=== PATIENT | female | born 1990 | race Caucasian/White ===

== ENCOUNTER → 2016-08-09 | Day surgery (SDC) | payer BC ==
[~2016-08-09] VITALS: Ht 160 cm; Wt 79.4 kg
[~2016-08-09] MED LIST: NAPROXEN DELAY500 MG PO; NORCO 325 MG-51 TAB PO
[2016-08-09 08:34] VITALS: BP 144/85
[2016-08-09 09:03] VITALS: BP 144/85
[2016-08-09 09:09] VITALS: BP 134/96
[2016-08-09 09:12] VITALS: BP 128/71
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
== END ==
LOC: PM 08:19
PROC: 3E0U33Z Introduction of Anti-inflammatory into Joints, Percutaneous Approach (ICD-10-PCS; principal; 2016-08-09)
PROC: 3E0U3BZ Introduction of Anesthetic Agent into Joints, Percutaneous Approach (ICD-10-PCS; 2016-08-09)
DX: M46.1 Sacroiliitis, not elsewhere classified (principal)
CPT/HCPCS: G0260; J1030

== ENCOUNTER → 2016-09-10 | Day surgery (SDC) | payer BC ==
[~2016-09-10] VITALS: Ht 160 cm; Wt 81.6 kg
[2016-09-10 13:18] VITALS: BP 150/86
[2016-09-10 13:39] VITALS: BP 150/86
[2016-09-10 13:40] VITALS: BP 133/83
--- NOTE | 2016-09-10 13:46 | Procedure Note ---
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 Post-procedure diagnosis: Same. Indications for procedure: This patient is a pleasant 25-year-old white female who we have been treating for low back pain and LEFT hip pain with some LEFT leg radicular symptoms. She did have a LEFT SI joint injection which gave her temporary relief for 3-4 days. Her pain still is radiating down her LEFT leg. I believe she would benefit from a lumbar epidural steroid injection. We will plan on a lumbar epidural steroid injection under fluoroscopy. She does have degenerative changes with disc bulge at L4-L5 and facet disease at L5-S1. Patient presents today for L4-5 lumbar epidural steroid injection. Procedure detail: Procedure: Lumbar epidural steroid injection under fluoroscopy Informed consent was obtained and the risks and benefits of the procedure were explained to the patient. The patient was taken to the procedure room and noninvasive monitors placed, including noninvasive blood pressure cuff and pulse oximeter. The back was viewed using C-arm Fluoroscopy and prepped using Betadine as a cleansing solution and the L4-L5 interspace was palpated. Skin and subcutaneous tissues were anesthetized using lidocaine 1.5% and a 25-gauge needle. After this, an 18-gauge Touhy epidural needle was placed into the L4-L5 interspace and advanced using fluoroscopic guidance and loss of resistance to air until the epidural space was encountered. After confirmation of needle placement in the epidural space, with dye, a solution containing lidocaine 1.5%, 4 mL and Depo-Medrol 80 mg were incrementally injected into the lumbar epidural space. The patient tolerated the procedure well with no complications. The patient was observed in the Pain Clinic and then discharged home neurologically intact. Plan and disposition: Patient reevaluated 10 minutes post procedure. She is doing quite well. She'll return to see us in the pain clinic for further evaluation. at [id number]
[2016-09-10 13:55] VITALS: BP 126/72
== END ==
LOC: PM 12:58
PROC: 3E0R33Z Introduction of Anti-inflammatory into Spinal Canal, Percutaneous Approach (ICD-10-PCS; principal; 2016-09-10)
PROC: 3E0R3BZ Introduction of Anesthetic Agent into Spinal Canal, Percutaneous Approach (ICD-10-PCS; 2016-09-10)
DX: M51.16 Intervertebral disc disorders with radiculopathy, lumbar region (principal)
CPT/HCPCS: J1040; Q9966

== ENCOUNTER 2016-12-10 13:33 | Day surgery (SDC) | payer BC ==
[~2016-12-10] VITALS: Ht 160 cm; Wt 79.4 kg
[2016-12-10 14:14] VITALS: BP 147/83
[2016-12-10] MEDS ORDERED: PROZAC 20MG CAP20 MG PO (14:22)
[2016-12-10 14:28] VITALS: BP 147/83
[2016-12-10 14:33] VITALS: BP 142/82
--- NOTE | 2016-12-10 14:35 | Procedure Note ---
Procedure detail Date of procedure: 12/10/16 Anesthesiologist: Giovani mehta CRNA Complications: None Pre-procedure diagnosis: Degenerative disease of her spine multiple levels. Lumbar facet arthropathy. Lumbar spondylosis. Post-procedure diagnosis: Same. Indications for procedure: Very pleasant 26-year-old white female we've been treating her pain clinic for chronic low back pain. She status post 1 round of medial branch block L4-5, L5- S1. Patient reports 75 percent improvement terms for lumbar back pain after receiving the injections. She presents today for second round of medial branch block bilateral L4-5, L5-S1. Procedure detail: Informed consent was obtained and the risk and benefits of the procedure was explained to the patient. Patient was taken to the procedure room where noninvasive monitors were placed, including noninvasive blood pressure cuff as well as pulse oximeter. The area over the lumbar spine was cleansed using chlorhexidine as a cleansing solution. I anesthetized the skin and subcutaneous tissues with 1% Lidocaine. I placed 22-gauge spinal needles into the facet joint / medial branches of bilaterally L4-5, L5-S1. Needle placement was confirmed with fluoroscopy. After confirmation of needle placement, each site was injected with 1 mL of 1% lidocaine and 0.25 % Marcaine and 10 mg of Depo-Medrol. A total of 80 mg of depo medrol was used for bilateral medial branch blocks of L4-5, L5- S1 bilaterally. Patient tolerated the procedure without difficulty. There were no complications. Plan and disposition: Patient was evaluated 10 minutes post procedure. Patient reports 75 percent improvement terms of her lumbar back pain and flexion, extension, LEFT and RIGHT rotation. at [id number]
[2016-12-10 14:40] VITALS: BP 117/74
== END 2016-12-10 14:40 ==
LOC: PM 13:33
PROC: 3E0T3BZ Introduction of Anesthetic Agent into Peripheral Nerves and Plexi, Percutaneous Approach (ICD-10-PCS; principal; 2016-12-10)
PROC: 3E0T33Z Introduction of Anti-inflammatory into Peripheral Nerves and Plexi, Percutaneous Approach (ICD-10-PCS; 2016-12-10)
PROC: BR161ZZ Fluoroscopy of Lumbar Facet Joint(s) using Low Osmolar Contrast (ICD-10-PCS; 2016-12-10)
DX: M51.36 Other intervertebral disc degeneration, lumbar region (principal); M54.06 Panniculitis affecting regions of neck and back, lumbar region
CPT/HCPCS: J1040